=== PATIENT | male | born 1960 | race Caucasian/White ===

== ENCOUNTER 2021-02-01 08:58 | Outpatient (REF) | payer OTHER, SELFPAY ==
[2021-02-01 09:16] LABS: MANUAL DIFF FLAG NO
[2021-02-01 09:58] LABS: Basophils Absolute Auto 0.1 X10*3/uL (0.0-0.2); Basophils Percent Auto 0.7 % (0-2); Eosinophils Absolute Auto 0.1 X10*3/uL (0.0-0.4); Eosinophils Percent Auto 1.6 % (0-4); Hematocrit 43.3 % (42.0-52.0); Hemoglobin 14.5 g/dl (14.0-18.0); Imm Gran Abs Auto 0.05 X10*3/uL (0.00-0.03); Imm Gran Pct Auto 0.7 % (0.0-0.4); Lymphocytes Absolute Auto 2.6 X10*3/uL (1.2-4.9); Lymphocytes Percent Auto 37.6 % (20-40); Mean Corpuscular HGB Conc 33.5 g/dl (31.0-36.0); Mean Corpuscular Hemoglobin 29.2 pg (27.0-33.0); Mean Corpuscular Volume 87.3 fL (80.0-98.0); Mean Platelet Volume 11.6 fL (9.4-12.4); Monocytes Absolute Auto 0.6 X10*3/uL (0.1-1.2); Monocytes Percent Auto 8.6 % (2-11); Neutrophils Absolute Auto 3.5 x10*3/uL (2.0-8.3); Neutrophils Percent Auto 50.8 % (45-73); Platelet Count 153 X10*3/uL (160-400); Red Blood Count 4.96 X10*6/uL (4.60-5.80); Red Cell Distribution Width 12.9 % (11.0-16.0); White Blood Count 6.9 X10*3/uL (4.8-10.8)
[2021-02-01 10:29] LABS: Alanine Aminotransferase 42 U/L (0-40); Albumin Level 4.1 g/dL (3.5-5.0); Alkaline Phosphatase 69 U/L (39-117); Anion Gap 12 (12-20); Aspartate Amino Transferase 25 U/L (5-37); Bilirubin Total 0.3 mg/dL (0.0-1.0); Blood Urea Nitrogen 14 mg/dL (9-16); C Reactive Protein 0.41 mg/dL (< or = 0.50); Calcium 9.8 mg/dL (8.4-10.2); Carbon Dioxide 29 mmol/L (22-29); Chloride 100 mmol/L (96-108); Cholesterol 245 mg/dL; Estimated Glomerular Filt Rate > 60; Glucose Fasting 190 mg/dL (60-99); HDL Cholesterol 44 mg/dL; LDL Cholesterol Calculated 144 mg/dl; Potassium 4.6 mmol/L (3.3-5.1); Sodium 136 mmol/L (135-145); Total Protein 7.6 g/dL (6.5-8.0); Triglycerides 288 mg/dL
[2021-02-01 10:37] LABS: Uric Acid 5.7 mg/dL (3.4-7.0)
[2021-02-01 10:48] LABS: Prostate Specific Antigen Scr 0.23 ng/mL (<0.05-4.0); TSH reflex Free T4 2.55 uIU/mL (0.32-4.0); Vitamin D 25-OH Total 23.5 ng/mL (>30)
[2021-02-01 10:51] LABS: Erythrocyte Sedimentation Rate 8 MM/HR (0-15)
[2021-02-01 11:16] LABS: Appearance Urine CLEAR; Color Urine YELLOW; Glucose Urine UA NEG (NEG); Leukocyte Esterase Urine NEG (NEG); Nitrite Urine NEG (NEG); Specific Gravity - Urine 1.025 (1.005-1.025); Urine Blood NEG (NEG); Urine Ketones NEG (NEG); Urine Protein NEG (NEG-TRACE)
[2021-02-01 11:19] LABS: Rheumatoid Factor 182.5 IU/mL (<15.0)
[2021-02-02 13:21] LABS: Anti Nuclear Antibody Screen NEGATIVE (NEGATIVE)
== END 2021-02-01 08:59 | disposition home or self-care (01) ==
LOC: HO.LAB 08:58
PROVIDERS: PCP Internal Medicine; Visit Provider Internal Medicine
DX: Z00.00 Encounter for general adult medical examination without abnormal findings (principal); Z12.5 Encounter for screening for malignant neoplasm of prostate; E78.00 Pure hypercholesterolemia, unspecified; E55.9 Vitamin D deficiency, unspecified; M25.50 Pain in unspecified joint; E66.9 Obesity, unspecified
CPT/HCPCS: 36415; 80053; 80061; 81003; 82306; 84153; 84443; 84550; 85025; 85652; 86038; 86039; 86140; 86431

== ENCOUNTER 2021-07-24 07:33 | Outpatient (REF) | payer OTHER, SELFPAY ==
[2021-07-24 08:54] LABS: Alanine Aminotransferase 27 U/L (0-40); Albumin Level 4.3 g/dL (3.5-5.0); Alkaline Phosphatase 94 U/L (39-117); Anion Gap 14 (12-20); Aspartate Amino Transferase 16 U/L (5-37); Bilirubin Total 0.6 mg/dL (0.0-1.0); Blood Urea Nitrogen 12 mg/dL (9-16); C Reactive Protein 1.93 mg/dL (< or = 0.50); Calcium 9.5 mg/dL (8.4-10.2); Carbon Dioxide 25 mmol/L (22-29); Chloride 97 mmol/L (96-108); Cholesterol 296 mg/dL; Estimated Glomerular Filt Rate > 60; HDL Cholesterol 48 mg/dL; LDL Cholesterol Calculated 201 mg/dl; Potassium 4.6 mmol/L (3.3-5.1); Sodium 131 mmol/L (135-145); Total Protein 7.9 g/dL (6.5-8.0); Triglycerides 237 mg/dL
[2021-07-24 08:57] LABS: Erythrocyte Sedimentation Rate 14 MM/HR (0-15)
[2021-07-24 09:43] LABS: Rheumatoid Factor 184.3 IU/mL (<15.0)
[2021-07-24 09:51] LABS: Glucose Fasting 422 mg/dL (60-99)
[2021-07-27 13:36] LABS: Cyclic Citrullinated Peptide >250 UNITS
== END 2021-07-24 07:34 | disposition home or self-care (01) ==
LOC: HO.LAB 07:33
PROVIDERS: PCP Internal Medicine; Visit Provider Internal Medicine
DX: M25.50 Pain in unspecified joint (principal); R76.8 Other specified abnormal immunological findings in serum; E78.00 Pure hypercholesterolemia, unspecified
CPT/HCPCS: 36415; 80053; 80061; 85652; 86140; 86200; 86431

== ENCOUNTER 2021-09-15 07:11 | Emergency (ER) | payer OTHER, SELFPAY ==
[2021-09-15 07:21] VITALS: BP 146/83; PULSE 88; RESP 18; TEMP 36.2; O2SAT 98; BMI 28.8
--- NOTE | 2021-09-15 09:59 | ED.SKABFB ---
HPI - Skin/Abscess/Foreign Bdy General Chief complaint: Skin/Abscess/Foreign Body Stated complaint: growth on back Time Seen by Provider: 09/15/21 09:04 Source: patient Mode of arrival: ambulatory History of Present Illness complaint: abscess/boil Onset (ago): day(s) (For the past few days worse today) Location: back Severity: mild Quality: aching Pain Consistency: constant Relieving factors: none Exacerbating factors: none Context: none Associated symptoms: denies other symptoms Treatments prior to arrival: none Related Data Previous Rx's Medication Instructions Recorded metformin 1,000 mg tablet 1,000 mg PO BID 30 days #60 tabs 07/23/21 lidocaine 4 % topical patch 1 patch topical DAILY PRN pain #15 07/25/21 (Aspercreme (lidocaine)) ea cephalexin 500 mg capsule 500 mg PO Q6H 10 days #40 caps 09/15/21 doxycycline monohydrate 100 mg 100 mg PO BID 10 days #20 tabs 09/15/21 tablet ibuprofen 800 mg tablet 800 mg PO Q8H PRN pain #14 tabs 09/15/21 Allergies Allergy/AdvReac Type Severity Reaction Status Date / Time No Known Allergies Allergy Verified 09/15/21 07:21 [No Known Allergies*] Review of Systems Review of Systems: Constitutional : Denies history of same, Denies any other sites involved, Denies IV drug use, Denies history of MRSA, Denies swollen glands, Denies injury, Denies Fever, Denies Chills, No Sig Pain, Denies Systemic symptoms Cardiovascular : No Chest Pain, No SOB Respiratory : No Dyspnea Gastrointestinal : No abdominal pain Musculoskeletal : No Joint Swelling Skin : + abscess, No surrounding erythema, No skin laceration, No Foreign bodies, No spreading rash, Denies bites, Denies discharge, Neuro : No Weakness, No Numbness/tingling Psych : No SI/HI/thoughts of self injury Yes all other systems are reviewed and are negative PMFSH Past Medical History Attestation statement: The following information was validated with the patient. Source: old records reviewed and nursing notes reviewed Medical History Obesity (BMI 30-39.9) Surgical History History of facial surgery (~1976) Family History Family History Mother No problems noted. Father No problems noted. Social History Social History Housing: Apartment Patient Tobacco Use Status: Former Tobacco user Tobacco use type: Cigarette e-Cigarette/Vaping Use: Never Used Second Hand Smoke Exposure: No Advance Directives: No Advance Directives Information Provided: No service: No Current occupational status: employed Cognitive needs: No Hearing needs: No Vision needs: No Physical Exam Vital Signs: Vital Signs: Last Vital Signs Temp 97.2 F 09/15/21 07:21 Pulse 88 09/15/21 07:21 Resp 18 09/15/21 07:21 BP 146/83 H 09/15/21 07:21 Pulse Ox 98 09/15/21 07:21 O2 Del Method 09/15/21 07:21 BMI result Body Mass Index 28.8 vital signs have been reviewed as normal and appeared to be correct. Blood pressure normal Heart rate normal. Respiration rate normal. Temperature normal. Oxygen saturation normal. Appearance: Alert. Oriented X3. No acute distress. Head: Normal external exam. Normocephalic. Atraumatic. Eyes: PERRLA. EOMI. Conjunctiva and sclera normal. Eyelids normal. ENT: Pharynx normal. Uvula midline. Moist mucous membranes. Neck: Normal inspection. Neck supple. FROM. CVS: Normal heart rate and rhythm. Respiratory: No respiratory distress. Painless inspiration. Skin: Skin warm and dry. Normal skin color. Normal skin turgor. Patient with tender fluctuant abscess to left upper back. No streaking/induration/foreign bodies or purulent drainage at this time or surrounding erythema. No additional rashes/lesions/lacerations noted. Extremities: Extremities exhibit normal range of motion. Extremities nontender. Neuro: Oriented X 3. No motor deficit. No sensory deficit. Reflexes normal. Normal steady gait. No focal neuro deficits noted. Vascular: + radial pulses/+ 2 distal pedal pulses/+2 dorsalis pedis b/l. Normal cap refill. No cyanosis noted to upper extremity nails and lower extremity toes nails. Course Course Course Narrative: IMP/Plan: abscess. No systemic toxicity, and pt looks well. No surrounding cellulitis. Not c/w nec fasc/ myositis/ DVT/ osteomyelitis. patient now status post I&D of abscess and patient tolerated procedure well. No complications. No labs or imaging indicated at this time. Will DC home antibiotics and symptomatic treatment instructions return if any new or worsening symptoms to follow up with primary care provider. Patient understands agrees this plan. MDM - Skin/Abscess/Foreign Bdy Medical Records Attestation: I reviewed the patient's medical records. Procedures Abscess I/D Site: back Side (if applicable): left Local Anesthetic: lidocaine 1% Amount of anesthesia used (mL): 4 Technique: needle aspiration and incised with blade Amount of fluid expressed (mL): 3 Sent for culture/gram staining?: No Irrigation: Yes Packing used?: none Complications: other (No complications) Discharge Plan Discharge Clinical Impression: Abscess of skin or subcutaneous tissue Patient Disposition: Home, Self-Care Instructions: Abscess Incision and Drainage (DC) Prescriptions: New doxycycline monohydrate 100 mg tablet 100 mg PO BID 10 Days Qty: 20 0RF cephalexin 500 mg capsule 500 mg PO Q6H 10 Days Qty: 40 0RF ibuprofen 800 mg tablet 800 mg PO Q8H PRN (Reason: pain) Qty: 14 0RF No Action metformin 1,000 mg tablet 1,000 mg PO BID 30 Days Qty: 60 3RF lidocaine [Aspercreme (lidocaine)] 4 % adhesive patch,medicated 1 patch topical DAILY PRN (Reason: pain) Qty: 15 0RF Referrals: Amauri Loza MD [Primary Care Provider] - 2 days Print Language: Luxem[place]ish
== END 2021-09-15 11:20 | disposition home or self-care (01) ==
PROVIDERS: Emergency Provider Internal Medicine; PCP Internal Medicine
DX: L02.212 Cutaneous abscess of back [any part, except buttock and flank] (principal); E11.9 Type 2 diabetes mellitus without complications; E78.00 Pure hypercholesterolemia, unspecified; M25.50 Pain in unspecified joint; Z79.84 Long term (current) use of oral hypoglycemic drugs
CPT/HCPCS: 10060; 99282; 99284

== ENCOUNTER → 2021-12-08 12:24 | Outpatient (BNVA) | payer OTHER, SELFPAY | PROVIDERS: PCP Internal Medicine; Visit Provider Internal Medicine Endocrinology, Diabetes & Metabolism | DX: E11.9 Type 2 diabetes mellitus without complications (principal) | CPT/HCPCS: 82947; 83036 ==

== ENCOUNTER → 2022-02-04 07:43 | Outpatient (BNVA) | payer OTHER, SELFPAY | PROVIDERS: PCP Internal Medicine; Visit Provider Registered Nurse Diabetes Educator | DX: E11.9 Type 2 diabetes mellitus without complications (principal) ==

== ENCOUNTER 2022-02-10 15:01 | Outpatient (REF) | payer OTHER, SELFPAY ==
--- NOTE | ~2022-02-10 | XR_ITS ---
EXAMINATION: XR shoulder RT min 2V, XR shoulder LT min 2V CLINICAL INFORMATION: Reason for Exam M06.9 - Rheumatoid arthritis, unspecified COMPARISON: None. TECHNIQUE: Four views of the right shoulder and 4 views of the left shoulder FINDINGS: No acute fracture or dislocation. No cortical erosion. Moderate degenerative changes of the right shoulder with loss of the acromioclavicular joint space and calcification along the head of the greater tuberosity which may reflect sequelae of calcific tendinitis. Mild degenerative changes of the left shoulder involving the acromioclavicular and glenohumeral joint with degenerative spurring and calcification adjacent to the greater tuberosity suggesting calcific tendinitis. XR/XR shoulder RT min 2V IMPRESSION: Moderate degenerative changes of the right shoulder and mild degenerative changes of the left shoulder. Findings suggestive of calcific tendinitis bilaterally.
--- NOTE | ~2022-02-10 | XR_ITS ---
EXAMINATION: XR foot LT min 3V, XR foot RT min 3V CLINICAL INFORMATION: Rheumatoid arthritis COMPARISON: None TECHNIQUE: 3 views of the bilateral feet FINDINGS: RIGHT FOOT: No fracture or dislocation. Joint spaces are maintained. Accessory navicular ossicles. Mild degenerative changes of the foot with minimal degenerative spurring of the dorsal midfoot, Achilles tendon enthesopathy and plantar calcaneal spurring. No cortical erosion. Small tibiotalar joint effusion. Soft tissues are unremarkable. LEFT FOOT: No fracture or dislocation. Joint spaces are maintained. Mild degenerative changes of the foot with minimal degenerative spurring of the dorsal midfoot, Achilles tendon enthesopathy and plantar calcaneal spurring. No cortical erosion. No joint effusion. Soft tissues are unremarkable. XR/XR foot LT min 3V Impression: No acute osseous abnormalities. Mild osteoarthritis of the feet. No cortical erosions to favor inflammatory arthropathy. Small right tibiotalar joint effusion.
--- NOTE | ~2022-02-10 | XR_ITS ---
EXAMINATION: XR hand wrist RT, XR hand wrist LT CLINICAL INFORMATION: Rheumatoid arthritis COMPARISON: None TECHNIQUE: 4 views of the bilateral hands FINDINGS: RIGHT HAND: No fracture or dislocation. Joint spaces are maintained. No cortical erosion. Soft tissues are unremarkable. LEFT HAND: No fracture or dislocation. Joint spaces are maintained. No cortical erosion. Soft tissues are unremarkable. XR/XR hand wrist RT IMPRESSION: No acute osseous abnormality.
--- NOTE | ~2022-02-10 | XR_ITS ---
EXAMINATION: XR hand wrist RT, XR hand wrist LT CLINICAL INFORMATION: Rheumatoid arthritis COMPARISON: None TECHNIQUE: 4 views of the bilateral hands FINDINGS: RIGHT HAND: No fracture or dislocation. Joint spaces are maintained. No cortical erosion. Soft tissues are unremarkable. LEFT HAND: No fracture or dislocation. Joint spaces are maintained. No cortical erosion. Soft tissues are unremarkable. XR/XR hand wrist LT IMPRESSION: No acute osseous abnormality.
--- NOTE | ~2022-02-10 | XR_ITS ---
EXAMINATION: XR shoulder RT min 2V, XR shoulder LT min 2V CLINICAL INFORMATION: Reason for Exam M06.9 - Rheumatoid arthritis, unspecified COMPARISON: None. TECHNIQUE: Four views of the right shoulder and 4 views of the left shoulder FINDINGS: No acute fracture or dislocation. No cortical erosion. Moderate degenerative changes of the right shoulder with loss of the acromioclavicular joint space and calcification along the head of the greater tuberosity which may reflect sequelae of calcific tendinitis. Mild degenerative changes of the left shoulder involving the acromioclavicular and glenohumeral joint with degenerative spurring and calcification adjacent to the greater tuberosity suggesting calcific tendinitis. XR/XR shoulder LT min 2V IMPRESSION: Moderate degenerative changes of the right shoulder and mild degenerative changes of the left shoulder. Findings suggestive of calcific tendinitis bilaterally.
--- NOTE | ~2022-02-10 | XR_ITS ---
EXAMINATION: XR foot LT min 3V, XR foot RT min 3V CLINICAL INFORMATION: Rheumatoid arthritis COMPARISON: None TECHNIQUE: 3 views of the bilateral feet FINDINGS: RIGHT FOOT: No fracture or dislocation. Joint spaces are maintained. Accessory navicular ossicles. Mild degenerative changes of the foot with minimal degenerative spurring of the dorsal midfoot, Achilles tendon enthesopathy and plantar calcaneal spurring. No cortical erosion. Small tibiotalar joint effusion. Soft tissues are unremarkable. LEFT FOOT: No fracture or dislocation. Joint spaces are maintained. Mild degenerative changes of the foot with minimal degenerative spurring of the dorsal midfoot, Achilles tendon enthesopathy and plantar calcaneal spurring. No cortical erosion. No joint effusion. Soft tissues are unremarkable. XR/XR foot RT min 3V Impression: No acute osseous abnormalities. Mild osteoarthritis of the feet. No cortical erosions to favor inflammatory arthropathy. Small right tibiotalar joint effusion.
[2022-02-10 16:59] LABS: Basophils Absolute Auto 0.1 X10*3/uL (0.0-0.2); Basophils Percent Auto 0.7 % (0-2); Eosinophils Absolute Auto 0.2 X10*3/uL (0.0-0.4); Eosinophils Percent Auto 2.5 % (0-4); Hematocrit 44.1 % (42.0-52.0); Hemoglobin 14.6 g/dl (14.0-18.0); Imm Gran Abs Auto 0.03 X10*3/uL (0.00-0.03); Imm Gran Pct Auto 0.4 % (0.0-0.4); Lymphocytes Absolute Auto 2.6 X10*3/uL (1.2-4.9); Lymphocytes Percent Auto 30.9 % (20-40); MANUAL DIFF FLAG NO; Mean Corpuscular HGB Conc 33.1 g/dl (31.0-36.0); Mean Corpuscular Hemoglobin 28.6 pg (27.0-33.0); Mean Corpuscular Volume 86.5 fL (80.0-98.0); Mean Platelet Volume 11.6 fL (9.4-12.4); Monocytes Absolute Auto 0.8 X10*3/uL (0.1-1.2); Monocytes Percent Auto 9.5 % (2-11); Neutrophils Absolute Auto 4.8 x10*3/uL (2.0-8.3); Platelet Count 148 X10*3/uL (160-400); Red Cell Distribution Width 13.8 % (11.0-16.0); White Blood Count 8.5 X10*3/uL (4.8-10.8)
[2022-02-10 16:59] LABS: Appearance Urine Clear; Color Urine Yellow; Glucose Urine UA >=1000 mg/dL (Negative); Leukocyte Esterase Urine Negative (Negative); Nitrite Urine Negative (Negative); Specific Gravity - Urine >= 1.030 (1.005-1.025); UMIC TRIGGER UACC YES; Urine Blood Moderate (2+) (Negative); Urine Ketones Negative (Negative); Urine Protein Negative (Neg-Trace)
[2022-02-10 17:15] LABS: Bacteria Urine None Seen (None Seen); Hyaline Casts Urine 0-2 /LPF (0-2); RBC Urine >20 /HPF (0-2); Squamous Epithelial Cell Urine 0-2 /HPF (0-2); WBC Urine 0-5 /HPF (0-5)
[2022-02-10 17:22] LABS: Creatinine Urine 53.93 mg/dL
[2022-02-10 17:23] LABS: Creatinine Urine 53.92 mg/dL; Protein/Creatinine Ratio, Ur 0.19 (<0.2); Total Protein Urine Random 10 mg/dL (<12)
[2022-02-10 17:23] LABS: Alanine Aminotransferase 23 U/L (0-40); Albumin Level 4.4 g/dL (3.5-5.0); Alkaline Phosphatase 84 U/L (39-117); Anion Gap 13 (12-20); Aspartate Amino Transferase 21 U/L (5-37); Bilirubin Total 0.4 mg/dL (0.0-1.0); Blood Urea Nitrogen 16 mg/dL (9-16); C Reactive Protein 4.77 mg/dL (< or = 0.50); Calcium 9.7 mg/dL (8.4-10.2); Carbon Dioxide 28 mmol/L (22-29); Chloride 103 mmol/L (96-108); Cholesterol 189 mg/dL; Estimated Glomerular Filt Rate > 60; Glucose Fasting 131 mg/dL (60-99); Glucose Random 132 mg/dL (60-115); HDL Cholesterol 53 mg/dL; LDL Cholesterol Calculated 100 mg/dl; Potassium 4.1 mmol/L (3.3-5.1); Sodium 140 mmol/L (135-145); Total Protein 7.8 g/dL (6.5-8.0); Triglycerides 180 mg/dL; Uric Acid 4.8 mg/dL (3.4-7.0)
[2022-02-10 17:44] LABS: Vitamin D 25-OH Total 25.4 ng/mL (>30)
[2022-02-10 18:29] LABS: Erythrocyte Sedimentation Rate 17 MM/HR (0-15)
[2022-02-11 08:13] LABS: Estimated Average Glucose 235 mg/dL; Hemoglobin A1c % 9.8 %
[2022-02-11 09:31] LABS: HBS Num1 0.51 mIU/mL (0-7.99); HBc Num1 0.06 S/CO (0.00-0.79); Hepatitis A Antibody IgM 0.65 Index (0-0.79); Hepatitis B Core Antibody Nonreactive (Nonreactive); Hepatitis B Surface Antigen Negative (Negative); ~HepC Num1 0.13 S/CO (0.00-0.79); ~Hepatitis A Antibody IgM Nonreactive (Nonreactive); ~Hepatitis B Surface Antibody NONREACTIVE (Nonreactive); ~Hepatitis C Antibody Nonreactive (Nonreactive)
[2022-02-14 07:04] LABS: TS Negative Control Passed; TS Panel A 0; TS Panel B 0; TS Positive Control Passed; TSpotTB Negative (Negative)
[2022-02-14 11:14] LABS: Complement C3 131 mg/dL (82-185)
[2022-02-15 13:24] LABS: Anti DNA DS Antibody 4 IU/mL; SM/Ribonucleoprotein Ab <1.0 NEG AI (<1.0 NEG); Smith Protein <1.0 NEG AI (<1.0 NEG)
[2022-02-16 13:33] LABS: Anti Nuclear Antibody Screen NEGATIVE (NEGATIVE)
[2022-02-16 13:39] LABS: Antibody to SS-A Antigen <1.0 NEG AI (<1.0 NEG); Antibody to SS-B Antigen <1.0 NEG AI (<1.0 NEG)
[2022-02-17 16:09] LABS: DNAds, Crithidia Antibody Negative (Negative)
== END 2022-02-10 15:02 | disposition home or self-care (01) ==
LOC: HO.XRAY 15:01
PROVIDERS: PCP Internal Medicine; Visit Provider Student in an Organized Health Care Education/Training Program
DX: Z11.59 Encounter for screening for other viral diseases (principal); Z11.7 Encounter for testing for latent tuberculosis infection; M32.9 Systemic lupus erythematosus, unspecified; M79.671 Pain in right foot; E55.9 Vitamin D deficiency, unspecified; E78.00 Pure hypercholesterolemia, unspecified; E11.9 Type 2 diabetes mellitus without complications; M05.9 Rheumatoid arthritis with rheumatoid factor, unspecified; R21 Rash and other nonspecific skin eruption
CPT/HCPCS: 36415; 73030; 73110; 73130; 73630; 80053; 80061; 81001; 81003; 82043; 82306; 83036; 84156; 84550; 85025; 85652; 86038; 86039; 86140; 86160; 86225; 86235; 86255; 86481; 86704; 86706; 86709; 86803; 87340

== ENCOUNTER → 2022-02-18 08:22 | Outpatient (BNVA) | payer OTHER, SELFPAY | PROVIDERS: PCP Internal Medicine; Visit Provider Registered Nurse Diabetes Educator | DX: Z13.89 Encounter for screening for other disorder (principal) ==

== ENCOUNTER 2022-03-22 07:52 | Outpatient (REF) | payer OTHER, SELFPAY ==
[2022-03-22 08:20] LABS: MANUAL DIFF FLAG NO
[2022-03-22 09:20] LABS: Basophils Percent Auto 0.3 % (0-2); Eosinophils Absolute Auto 0.1 X10*3/uL (0.0-0.4); Eosinophils Percent Auto 0.7 % (0-4); Hematocrit 43.2 % (42.0-52.0); Hemoglobin 14.2 g/dl (14.0-18.0); Imm Gran Abs Auto 0.04 X10*3/uL (0.00-0.03); Imm Gran Pct Auto 0.3 % (0.0-0.4); Lymphocytes Absolute Auto 2.2 X10*3/uL (1.2-4.9); Lymphocytes Percent Auto 19.2 % (20-40); Mean Corpuscular HGB Conc 32.9 g/dl (31.0-36.0); Mean Corpuscular Hemoglobin 28.2 pg (27.0-33.0); Mean Corpuscular Volume 85.9 fL (80.0-98.0); Mean Platelet Volume 11.4 fL (9.4-12.4); Monocytes Absolute Auto 0.9 X10*3/uL (0.1-1.2); Monocytes Percent Auto 7.4 % (2-11); Neutrophils Absolute Auto 8.3 x10*3/uL (2.0-8.3); Neutrophils Percent Auto 72.1 % (45-73); Platelet Count 162 X10*3/uL (160-400); Red Blood Count 5.03 X10*6/uL (4.60-5.80); White Blood Count 11.5 X10*3/uL (4.8-10.8)
[2022-03-22 10:31] LABS: Appearance Urine Hazy; Color Urine DK YELLOW; Glucose Urine UA Negative (Negative); Leukocyte Esterase Urine Negative (Negative); Nitrite Urine Negative (Negative); PH 5.5 (5.0-9.0); Specific Gravity - Urine >= 1.030 (1.005-1.025); UMIC TRIGGER UA YES; Urine Blood Negative (Negative); Urine Ketones 15 mg/dL (Negative); Urine Protein 100 (2+) mg/dL (Neg-Trace)
[2022-03-22 10:33] LABS: Cholesterol 177 mg/dL; HDL Cholesterol 38 mg/dL; LDL Cholesterol Calculated 109 mg/dl; Triglycerides 150 mg/dL
[2022-03-22 10:44] LABS: Folate 15.7 ng/mL (> or = 4.0); Vitamin B12 1938 pg/mL (200-900)
[2022-03-22 10:46] LABS: WBC Urine 0-5 /HPF (0-5)
[2022-03-22 10:47] LABS: Bacteria Urine None Seen (None Seen); Hyaline Casts Urine 0-2 /LPF (0-2); RBC Urine 0-2 /HPF (0-2); Squamous Epithelial Cell Urine 0-2 /HPF (0-2)
[2022-03-22 11:32] LABS: Microalbum/Creatinine Ratio Ur 54.5 ug/mg cr
[2022-03-30 11:13] LABS: Testosterone, Total 353 ng/dL (250-1100)
== END 2022-03-22 07:53 | disposition home or self-care (01) ==
LOC: HO.LAB 07:52
PROVIDERS: Internal Medicine; Student in an Organized Health Care Education/Training Program; PCP Internal Medicine; Visit Provider Internal Medicine Endocrinology, Diabetes & Metabolism
DX: R30.0 Dysuria (principal); I10 Essential (primary) hypertension; G47.10 Hypersomnia, unspecified; M06.9 Rheumatoid arthritis, unspecified; E78.00 Pure hypercholesterolemia, unspecified; E11.9 Type 2 diabetes mellitus without complications
CPT/HCPCS: 36415; 80061; 81001; 81003; 82043; 82607; 82746; 82947; 84403; 85025